=== PATIENT | male | born 1965 | race Caucasian/White ===

== ENCOUNTER 2021-12-29 21:51 | Emergency (ER) | payer OTHER ==
[2021-12-29 22:01] VITALS: TEMP 98.3; BMI 27.1
[2021-12-29 23:01] VITALS: BP 129/73; PULSE 79
== END 2021-12-29 23:03 | disposition home or self-care (01) ==
LOC: FER 21:51
DX: M79.602 Pain in left arm (principal)
CPT/HCPCS: 36415; 82550; 82553; 84484; 93005; 93010; 99284-25